=== PATIENT | female | born 1965 | race Caucasian/White ===

== ENCOUNTER 2023-12-20 14:27 | Outpatient (CLI) | payer OTHER | END 2023-12-20 14:28 | disposition home or self-care (01) | LOC: LABBT 14:27 | PROVIDERS: ATTEND Orthopaedic Surgery | DX: Z01.818 Encounter for other preprocedural examination (principal); R22.32 Localized swelling, mass and lump, left upper limb | CPT/HCPCS: 93005; 93010 ==

== ENCOUNTER 2023-12-22 05:52 | Day surgery (SDC) | payer OTHER ==
[2023-12-20 14:54] VITALS: BMI 21.3
[2023-12-22] MEDS ORDERED: Bupivacaine PF 0.5% 30 ML VIAL ONE (06:26)
[2023-12-22] MEDS ORDERED: PROPOFOL 20 ML ONE (06:33)
[2023-12-22] MEDS ORDERED: fentaNYL 50 mcg/mL 1 mL Vial ONE (06:33)
[2023-12-22] MEDS ORDERED: CEFAZOLIN 2 GM VIAL ONE (06:49)
[2023-12-22] MEDS ORDERED: Sodium Chloride 0.9% 100 ML ONE (06:49)
[2023-12-22] MEDS ORDERED: Lidocaine 1% PF 5 ML VIAL ONE (07:05)
[2023-12-22] MEDS ORDERED: Ondansetron PF 4 MG/2 ML Vial ONE (07:21)
[2023-12-22] MEDS ORDERED: Dexamethasone 4 mg/ml Vial ONE (07:21)
== END 2023-12-22 08:53 | disposition home or self-care (01) ==
LOC: SDC 05:52
PROVIDERS: ATTEND Orthopaedic Surgery
PROC: 0JBH0ZZ Excision of Left Lower Arm Subcutaneous Tissue and Fascia, Open Approach (ICD-10-PCS; principal; 2023-12-22)
DX: D48.19 Other specified neoplasm of uncertain behavior of connective and other soft tissue (principal); M67.431 Ganglion, right wrist; S46.311A Strain of muscle, fascia and tendon of triceps, right arm, initial encounter; Z87.891 Personal history of nicotine dependence; W19.XXXA Unspecified fall, initial encounter
CPT/HCPCS: 88304; 88311; A6223; J0665; J1100; J2405; J2704; J3010